=== PATIENT | male | born 1980 | race Two or more races ===

== ENCOUNTER 2018-10-15 05:15 | Day surgery (SDC) | payer OTHER ==
[~2018-10-15] VITALS: Ht 195.6 cm; Wt 89.8 kg
[2018-10-15] VITALS (10 sets, daily range): BP systolic 91–136; BP diastolic 46–91
[2018-10-15] MEDS ORDERED: celeBREX 200mg Cap **SURGERY PATIENTS ONLY ORAL ONE (06:00)
[2018-10-15] MEDS ORDERED: oxyCONTIN 20mg tab ORAL ONE (06:00)
[2018-10-15] MEDS ORDERED: ceFAZolin 1gm IVPB IVPB ONE ×2 (06:00)
[2018-10-15] MEDS ORDERED: NKM (06:01)
--- NOTE | 2018-10-15 07:33 | Pre-Procedure Note/Attestation ---
Pre-Procedure Note/Attestation Complete Prior to Procedure Planned Procedure: right Procedure Narrative: knee diagnostic arthroscopy, possible menisectomy/synovectomy Indications for Procedure Pre-Operative Diagnosis: right knee internal drangement Attestation I attest that I discussed the nature of the procedure; its benefits; risks and complications; and alternatives (and the risks and benefits of such alternatives ), prior to the procedure, with the patient (or the patient's legal service support representative). I attest that, if there was a reasonable possibility of needing a blood transfusion, the patient (or the patient's legal service support representative) was given the [facility] standardized written summary, pursuant to the [place] Sumit Blood Safety Act ([place] Health and Safety Code # 1645, as amended). I attest that I re-evaluated the patient just prior to the surgery and that there has been no change in the patient's H&P, except as documented below: Johny Carrasquillo MD Oct 15, 2018 07:33
--- NOTE | 2018-10-15 07:33 | Operative Note - PDOC ---
Operative Note Operative Note Pre-op Diagnosis: right knee internal drangement Procedure: see op report Post-op Diagnosis: same as pre-op plus Operative Findings: consistent w/pre-op dx studies Anesthesia: MAC Specimen: none Complications: none Condition: stable Estimated Blood Loss: none Implant(s) used?: No Johny Carrasquillo MD Oct 15, 2018 07:33
[2018-10-15] MEDS ORDERED: HYDROmorphone 1mg/ml Carpuject SUBQ PRN (07:45)
[2018-10-15] MEDS ORDERED: Tylenol #3 tab (300mg/30mg) ORAL PRN (07:45)
[2018-10-15] MEDS ORDERED: HYDROcodone/Acetamin 5/325 tab ORAL PRN (07:45)
[2018-10-15] MEDS ORDERED: D5 1/2NS 1,000 ML IV SCH (07:45)
[2018-10-15] MEDS ORDERED: Kenalog-40 1ml Vial ONE (08:25)
[2018-10-15] MEDS ORDERED: Ketorolac 30mg Inj ONE ×2 (08:25→08:28)
[2018-10-15] MEDS ORDERED: fentaNYL 100 mcg/2 mL IV ONE (08:26)
[2018-10-15] MEDS ORDERED: Midazolam 2mg/2ml Inj ONE (08:26)
[2018-10-15] MEDS ORDERED: Bupivacaine 0.25% Inj 30ml INJ ONE (08:26)
[2018-10-15] MEDS ORDERED: Lidocaine 1% 10mg/ml/Epi 0.005mg/ml 30ml vial INJ ONE (08:26)
[2018-10-15] MEDS ORDERED: Duramorph PF 5mg/10ml amp ONE (08:26)
[2018-10-15] MEDS ORDERED: Propofol 200mg/20ml IV ONE ×2 (08:28→08:53)
[2018-10-15] MEDS ORDERED: Lidocaine 1% MPF 10mg/ml 5ml ONE (08:28)
[2018-10-15] MEDS ORDERED: Duramorph PF 5mg/10ml amp EPIDUR ONE (08:58)
[2018-10-15] MEDS ORDERED: LR 1000ml ONE (09:00)
[2018-10-15] MEDS ORDERED: LR 1000ml 1,000 ML IVLG SCH (09:18)
--- NOTE | 2018-10-15 09:18 | Anethesia Preoperative Eval ---
Anesthesia Pre-op PMH/ROS General Date of Evaluation: Oct 15, 2018 Time of Evaluation: 08:40 Anesthesiologist: Felisha ASA Score: ASA 2 Mallampati Score Class I : Soft palate, uvula, fauces, pillars visible Class II: Soft palate, uvula, fauces visible Class III: Soft palate, base of uvula visible Class IV: Only hard plate visible Mallampati Classification: Class II Surgeon: Foreign Diagnosis: R knee pain Surgical Procedure: R knee scope Anesthesia History: none Family History: no anesthesia problems Allergies: Coded Allergies: No Known Allergies (Unverified , 10/14/18) Medications: see eMAR Patient NPO?: Yes Past Medical History Cardiovascular: Denies: HTN, CAD, [place], valve dz, arrhythmia, other Pulmonary: Denies: asthma, COPD, MAGDIEL, other Gastrointestinal/Genitourinary: Reports: GERD; Denies: CRI, ESRD, other Neurologic/Psychiatric: Denies: dementia, CVA, depression/anxiety, TIA, other Endocrine: Denies: DM, hypothyroidism, steroids, other HEENT: Denies: cataract (L), cataract (R), glaucoma, [place] (L), [place] (R), other Hematology/Immune: Denies: anemia, DVT, bleeding disorder, other Musculoskeletal/Integumentary: Denies: OA, RA, DJD, DDD, edema, other PMH Narrative: as above PSxH Narrative: none Anesthesia Pre-op Phys. Exam Physician Exam Last Vital Signs Date Time Temp Pulse Resp B/P (MAP) Pulse Ox O2 Delivery O2 Flow Rate FiO2 10/15/18 06:10 98.2 84 20 136/84 98 Room Air Constitutional: NAD Neurologic: CN 2-12 intact Cardiovascular: RRR, no M/R/G Respiratory: CTA Gastrointestinal: S/NT/ND Airway Exam Mallampati Score: Class II MO: full Neck: flexible ROM: full Teeth: intact Dentures: no upper, no lower Anesthesia Pre-op A/P Labs See chart Studies Pre-op Studies: EKG - NSR Risk Assessment & Plan Assessment: ASA 2 Plan: GA with LMA Status Change Before Surgery: No Pre-Antibiotics Drug: Ancef 1gr Given Within 1 Hr of Incision: Yes Time Given: 09:05 Josh Baeza MD Oct 15, 2018 09:18
[2018-10-15] MEDS ORDERED: Meperidine 50mg/ml Inj(FOR RIGORS ONLY) IV PRN (09:30)
[2018-10-15] MEDS ORDERED: DiphenhydrAMINE 50mg/ml Inj IVP PRN (09:30)
[2018-10-15] MEDS ORDERED: Ketorolac 30mg Inj IV PRN (09:30)
--- NOTE | 2018-10-15 09:42 | Immediate Post-Op Evaluation ---
Immediate Post-Op Evalulation Immediate Post-Op Evalulation Procedure: R knee arthroscopy meniscectomy Date of Evaluation: Oct 15, 2018 Time of Evaluation: 09:41 IV Fluids: 1000 Blood Products: none Estimated Blood Loss: min Urinary Output: none Blood Pressure Systolic: 95 Blood Pressure Diastolic: 56 Pulse Rate: 72 Respiratory Rate: 20 O2 Sat by Pulse Oximetry: 98 Temperature (Fahrenheit): 97.9 Pain Score (1-10): 1 Nausea: No Vomiting: No Complications none Patient Status: reacts, patent, none Hydration Status: adequate Josh Baeza MD Oct 15, 2018 09:42
--- NOTE | 2018-10-15 11:05 | 48 Hour Post Anesthesia Eval ---
Post Anesthesia Evaluation Procedure: R knee arthroscopy meniscectomy Date of Evaluation: Oct 15, 2018 Time of Evaluation: 10:56 Blood Pressure Systolic: 108 0: 52 Pulse Rate: 72 Respiratory Rate: 18 Temperature (Fahrenheit): 97.8 O2 Sat by Pulse Oximetry: 98 Airway: patent Nausea: No Vomiting: No Pain Intensity: 2 Hydration Status: adequate Cardiopulmonary Status: stable Mental Status/LOC: patient returned to baseline Follow-up Care/Observations: n/a Post-Anesthesia Complications: none Follow-up care needed: ready to discharge Josh Baeza MD Oct 15, 2018 11:05
--- NOTE | 2018-10-15 16:30 | Operative Note - Dictated ---
DATE OF OPERATION: 10/15/2018 PREOPERATIVE DIAGNOSES: 1. Right knee medial collateral sprain. 2. Right knee possible meniscal pathology. POSTOPERATIVE DIAGNOSES: 1. Right knee medial collateral ligament sprain. 2. Grade 2 chondral damage, medial femoral condyle as well as trochanter groove and medial patellar facet. PROCEDURE: 1. Right knee diagnostic arthroscopy. 2. Right knee synovectomy medial, lateral, and patellofemoral compartment. 3. Gentle chondroplasty, medial and patellofemoral compartment. SURGEON: Johny Carrasquillo M.D. ANESTHESIA: General. INDICATION FOR PROCEDURE: The patient is a pleasant gentleman, who had a significant injury to his right knee, who was diagnosed with medial cartilaginous sprain, but still had continued pain despite conservative treatment, elected to undergo diagnostic arthroscopy. Risks, limitations, expectations, and complications of the procedure were discussed in detail. All questions addressed. DESCRIPTION OF PROCEDURE: After informed consent was obtained, the patient was brought to the operative room, and placed under general anesthesia. Right leg was prepped and draped in a sterile fashion. Ancef was administered. Time-out was performed. An inferolateral stab incision was then made. Trocar was introduced in the knee joint. There was hypertrophic fat pad and synovial tissue in patellofemoral compartment. There was some chondral damage at the medial patellar facet. Medial compartment was entered, hypertrophic synovial tissue, and fat pad anteriorly. Medial working portal was established. Synovectomy in the anterior portion of the medial compartment extending into the intercondylar notch, lateral compartment was performed. At this point, attention was drawn towards the medial compartment. The meniscus was probed, which was noted to be intact. There was some grade 2 chondral damage along the medial femoral condyle consistent with medial collateral ligament sprain injury. ACL was intact. Lateral compartment was entered free of meniscal chondral damage. Camera was then placed in patellofemoral compartment. Excision of the fat pad and synovectomy was completed. Once that was completed, there was a grade 2 fissure that measured approximately 4 cm along the trochlear groove as well as some chondral damage grade 2 in the medial patellar facet. The instruments were removed. Portal sites were closed with 3-0 Monocryl sutures. Steri-Strips and a sterile dressing were applied. The patient was awoken and taken to recovery room with stable vital signs. ESTIMATED BLOOD LOSS: None. COMPLICATIONS: None. SPECIMENS: None. IMPLANTS: None. Johny Carrasquillo M.D. DR: PUJA JOB#: [id number] CC: LEEANNA
== END 2018-10-15 12:50 | disposition home or self-care (01) ==
LOC: SUR 05:15
DX: S83.411A Sprain of medial collateral ligament of right knee, initial encounter (principal); M23.91 Unspecified internal derangement of right knee; X58.XXXA Exposure to other specified factors, initial encounter; Y92.9 Unspecified place or not applicable; K21.9 Gastro-esophageal reflux disease without esophagitis
CPT/HCPCS: 29876; J0690; J1885; J2250; J2704; J3010; J3301; J3490; 94003; 94150